=== PATIENT | male | born 1970 | race Caucasian/White ===

== ENCOUNTER 2016-09-04 11:42 | Emergency (ER) | payer OTHER | END 2016-09-04 13:18 | disposition home or self-care (01) | LOC: ER 11:42 | DX: L03.116 Cellulitis of left lower limb (principal); D69.6 Thrombocytopenia, unspecified; M1A.0720 Idiopathic chronic gout, left ankle and foot, without tophus (tophi); M10.072 Idiopathic gout, left ankle and foot; R74.8 Abnormal levels of other serum enzymes; K21.9 Gastro-esophageal reflux disease without esophagitis; I10 Essential (primary) hypertension; G89.29 Other chronic pain; F17.210 Nicotine dependence, cigarettes, uncomplicated; Z79.899 Other long term (current) drug therapy; Z79.891 Long term (current) use of opiate analgesic; Z79.82 Long term (current) use of aspirin; Z88.0 Allergy status to penicillin ==